=== PATIENT | male | born 1965 | race Caucasian/White ===

== ENCOUNTER 2023-04-11 23:27 | Emergency (ER) | payer MEDICARE, SELFPAY ==
[2023-04-11 23:28] VITALS: BP 155/86; PULSE 77; RESP 18; TEMP 36.8; O2SAT 98
[2023-04-11] MEDS: morphine 10 MG/ML Syringe IM (23:47)
--- NOTE | 2023-04-12 | RAD_ITS ---
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 No significant displacement. JOINTS: No dislocation. SOFT TISSUES: Unremarkable. RAD/Shoulder min 2 Views IMPRESSION: Acute proximal humerus fracture. Electronically Signed: Negrita Grier MD at 0:38 EDT ,
--- NOTE | 2023-04-12 00:27 | EX.ED.UPPERE ---
HPI History of Present Illness Chief Complaint: Upper Extremity Injury Detail of Chief Complaint: Right shoulder injury Informant: patient Occured/Mechanism Mechanism/Context: Yes fall Narrative Narrative: Patient presents secondary to right shoulder injury. He states he tripped on a rug and fell into a glass coffee table landing on his right shoulder. He complains of focal pain to the shoulder itself. He is on anticoagulants, but denies striking his head. There was no loss of consciousness. [facility] Medical History Anxiety CVA (cerebral vascular accident) Diabetes mellitus, type II Irritable bowel disease Home Medications hydrocodone-acetaminophen 5-325mg 5mg-325mg 1 tab PO Q6H PRN PRN Pain 3 days #12 TABLETS 04/12/23 [Rx Last Taken Unknown] Allergy/AdvReac Type Severity Reaction Status Date / Time No Known Allergies Allergy Verified 04/11/23 23:30 Social History Smoking Status: Never smoker ROS ROS ED Constitutional Constitutional ED: Denies chills or fever(s) Eyes Eyes: Denies discharge from eye(s) ENT ENT ED: Denies discharge from eye(s), rhinorrhea or sore throat Cardiovascular Cardiovascular: Denies chest pain or palpitations Respiratory/Chest Respiratory/Chest: Denies cough or dyspnea Gastrointestinal Gastrointestinal: Denies abdominal pain, nausea or vomiting Musculoskeletal Musculoskeletal: Reports extremity pain; Denies back pain Integumentary Denies Abrasions or rash Neurologic Neurologic: Denies headache(s), paresthesias or weakness Psychiatric Psychiatric: Reports anxiety; Denies depression Allergic/Immunologic Allergic/Immunologic ED: Denies lip swelling or urticaria EXAM Physical Exam Const Vital Signs: 04/11/23 23:28 Temperature 98.3 F Temperature Source Temporal Pulse Rate 77 Respiratory Rate 18 Blood Pressure 155/86 H Blood Pressure Mean 109 Pulse Ox 98 Oxygen Delivery Method Room Air Positive well nourished and well developed General Appearance ED: well developed HEENT Reports normocephalic and head/scalp atraumatic Eyes PERRL and EOMs intact bilaterally Neck supple Chest Wall inspection of chest normal and palpation of chest normal Resp normal respiratory effort and clear to auscultation bilaterally Cardio regular rate and regular rhythm GI non-tender Palpation: soft Extremity Extremity Narrative: Tenderness palpation around the right humeral head. No evidence of dislocation. No tenderness along the clavicle or scapula. No tenderness at the elbow or wrist. Good distal pulses with normal sensation. Neuro oriented x3 and no sensory deficits noted Sensorium / Orientation: alert Psych Mood & Affect: anxious Skin no rashes or lesions noted MDM MDM MDM Narrative Medical decision making narrative: Patient is given IM morphine for pain control. Right shoulder x-rays obtained to evaluate for fracture, dislocation, contusion. Treatment and Re-Evaluation Narrative: Right shoulder x-rays from interpretation reveal a proximal right humerus fracture. X-rays are reviewed with him. He lives in the [facility] and has followed up at [facility] previously. I will treat him with hydrocodone which she has done well with in the past. Sling and swath were placed. Return instructions given Discharge Plan Triage Chief Complaint: Upper Extremity Injury ED Provider: Cande Vásquez Dx/Rx/DC Orders Clinical Impression: Closed fracture of right proximal humerus Instructions: ED Fracture, Shoulder Prescriptions: New hydrocodone-acetaminophen 5-325 mg tablet 1 tab PO Q6H PRN PRN (Reason: Pain) 3 Days Qty: 12 0RF Primary Care Provider: NOT,DEFINED Referrals: Bharat Ahumada MD [Non-Staff] - 5-7 Days NOT,DEFINED [Primary Care Provider] - Disposition Disposition: Home, Self Care Discharge Date/Time: 04/12/23 01:06
[2023-04-12] MEDS: HYDROcodone Bitartrate/Apap 5/325 Tablet PO (00:45)
== END 2023-04-12 01:06 | disposition home or self-care (01) ==
PROVIDERS: Emergency Provider Emergency Medicine; Visit Provider Emergency Medicine
DX: S42.201A Unspecified fracture of upper end of right humerus, initial encounter for closed fracture (principal); E11.9 Type 2 diabetes mellitus without complications; W01.0XXA Fall on same level from slipping, tripping and stumbling without subsequent striking against object, initial encounter; W22.8XXA Striking against or struck by other objects, initial encounter; Z79.01 Long term (current) use of anticoagulants; F41.9 Anxiety disorder, unspecified
CPT/HCPCS: 73030; 96372; 99283